=== PATIENT | male | born 2000 | race Caucasian/White ===

== ENCOUNTER 2023-01-25 20:34 | Emergency (ER) | payer BC, SELFPAY ==
[2023-01-25 20:42] VITALS: BP 152/85; PULSE 107; RESP 16; TEMP 36.8; O2SAT 98; BMI 20.5
[2023-01-25 21:42] VITALS: BP 138/81; PULSE 98; RESP 16; TEMP 36.6
--- NOTE | 2023-01-25 21:43 | HMH.EDGENADL ---
Discharge Plan Disposition Patient Disposition: Home, Self-Care Condition: Good Referrals Follow up/Referrals: Gloria Dunn MD [Primary Care Provider] - See instructions Activity Restrictions/Add. Instructions Additional Instructions/Restrictions: You will be called if your results are positive. Please follow-up with your primary care provider. Please return to the emergency department if you develop any new or worsening symptoms or become concerned for your health. Clinical Impressions Clinical Impression: Encounter for medical assessment Instructions Patient Instructions: DI for Urinary Tract Infection (UTI), DI for Urinary Tract Infection in Children Discharge ED Provider: Domingo Garay General Adult HPI General Chief complaint: Urogenital-Male Stated complaint: poss STD Time Seen by Provider: 01/25/23 20:48 Mode of Arrival: Ambulatory Source of Information: Patient Limitations: No Limitations Description of Symptoms (Recalled from ER Triage Doc. by RN): pt states he would like to be tested for chlamydia. pt states he is asymptomatic and there is no none exposure. History of Present Illness HPI narrative: 22-year-old male reportedly previously healthy presents requesting to be tested for chlamydia. He presents with girlfriend. They state that they have a friend who recently tested positive for chlamydia and they were in the same house as this friend, using the same bathroom. They are concerned that they could have gotten chlamydia. The girlfriend was asked to leave the room and a gabriella discussion was had with patient. He adamantly denies any urinary symptoms. Reports that he is monogamous with his girlfriend and does not believe that he or she has had any exposures to STDs besides the one listed above. Despite this, and he adamantly wants to be tested for chlamydia. Related Data Allergies Allergy/AdvReac Type Severity Reaction Status Date / Time No Known Allergies Allergy Verified 01/25/23 20:45 [facility] Disclaimer: The information contained in this section may have been updated after the patient was seen, as this information can be updated by other users. Social History Smoking Status: Current every day smoker alcohol intake: never current occupational status: other Travel in the last 8 weeks: None ROS Obtained: Yes All systems reviewed & no additional complaints except as documented Physical Exam General General appearance: alert and in no apparent distress Head Head exam: atraumatic and normocephalic Eye Eye exam: Present normal appearance, PERRL and EOMI ENT ENT exam: Present normal oropharynx and normal external ear exam Neck Neck exam: Present normal inspection and full ROM Chest Chest inspection: Present normal inspection and symmetric chest wall rise; Absent tenderness Respiratory Respiratory exam: Present normal lung sounds bilaterally; Absent respiratory distress Cardiovascular Cardiovascular exam: Present regular rate and normal rhythm Abdominal Exam Abdominal exam: Present soft; Absent distention, tenderness or guarding Extremities Exam Extremities exam: Present normal inspection; Absent edema or joint swelling Back Exam Back exam: Present normal inspection; Absent tenderness Neurological Exam Neurological exam: Present alert and oriented X3; Absent motor sensory deficit Psychiatric Psychiatric exam: Present normal affect and normal mood Skin Skin exam: Present warm, dry and normal color Lymphatic Lymphatic Findings: no adenopathy Medical Decision Making Medical Records Medical records reviewed: Yes I reviewed the patient's medical records. Klever Inquiry Pt receiving controlled substance: No Klever was queried for this patient: No Vital Signs: 01/25/23 20:42 01/25/23 21:42 Temperature 98.2 F 98 F Temperature Source Oral Pulse Rate 98 H Pulse Rate [Left] 107 H Respiratory Rate 16 16 Blood Pressure 138/81 Blood Pressure [Right Arm] 152/85 H
[2023-01-29 21:08] LABS: Neisseria gonorrhoeae, NAA Negative (Negative)
== END 2023-01-25 22:00 | disposition home or self-care (01) ==
PROVIDERS: Emergency Provider Emergency Medicine; PCP General Practice
DX: Z20.2 Contact with and (suspected) exposure to infections with a predominantly sexual mode of transmission (principal); F17.200 Nicotine dependence, unspecified, uncomplicated
CPT/HCPCS: 87491; 87591; 99283

== ENCOUNTER 2023-01-29 14:41 | Emergency (ER) | payer BC, SELFPAY ==
[2023-01-29] VITALS (7 sets, daily range): BP systolic 106–144; BP diastolic 56–87; PULSE 58–74; RESP 16–19; TEMP 36.6–36.8; O2SAT 98–100; BMI 21.1
--- NOTE | 2023-01-29 14:36 | ECG_ITS ---
APPROVED REPORT Exam: Resting ECG HR:65 bpm ECG Measurements Heart Rate 65 AXES DC 163 P 61 QRSd 90 QRS 92 QT 345 T 47 QTc 356 Conclusion SINUS RHYTHM BORDERLINE RIGHT AXIS DEVIATION [QRS AXIS > 90] BORDERLINE ECG UNCONFIRMED REPORT Electronically signed by : Obi Barajas MD 01/30/2023 19:44:29
--- NOTE | 2023-01-29 14:51 | XR_ITS ---
FINAL REPORT TECHNIQUE: Chest PA & Lateral CLINICAL HISTORY: chest pain, near syncope COMPARISON: None FINDINGS: 2 views of the chest were performed. The heart size is normal. The mediastinum is within normal limits. There is no acute cardiopulmonary process. There are no pleural effusions. There is no pneumothorax. The bony thorax appears intact. IMPRESSION: No acute cardiopulmonary process. Reviewed, Interpreted and Dictated by Miguel Olivarez MD Transcribed by Anamika Copeland Authenticated and [facility]
--- NOTE | 2023-01-29 14:57 | HMH.EDGENADL ---
Discharge Plan Disposition Patient Disposition: Home, Self-Care Condition: Good Referrals Follow up/Referrals: Provider,Referral, MD [Primary Care Provider] - See instructions Activity Restrictions/Add. Instructions Additional Instructions/Restrictions: Please return to the emergency department if you experience any new or worsening symptoms. Clinical Impressions Clinical Impression: Chest pain Qualifiers: Chest pain type: other chest pain Qualified Code(s): R07.89 - Other chest pain Stand Alone Forms Stand Alone Forms: Work/School Release Instructions Patient Instructions: DI for Atypical Chest Pain Discharge ED Provider: Jose Berry General Adult HPI <Pippa Winslow DO - Last Filed: 01/29/23 16:11> General Chief complaint: Chest Pain Stated complaint: chest pain Time Seen by Provider: 01/29/23 14:50 History of Present Illness HPI narrative: This patient is a 22-year-old male who do not significant past medical history presented to the emergency department for evaluation with concern for chest pain and an episode of presyncope that happened at work today. He reports that he was breathing heavily when he had numbness and tingling in his hands and feet. He states that he is experiencing chest tightness and pain and nearly passed out. He thinks that he may have actually passed out, but he is not sure. He is still experiencing chest tightness, but otherwise he is feeling better at this time. He denies any history of cardiopulmonary issues, blood clots, clotting disorders, lower extremity pain/swelling, fevers, cough, congestion, or other concerns. He does note recent stress and anxiety. Related Data Allergies Allergy/AdvReac Type Severity Reaction Status Date / Time No Known Allergies Allergy Verified 01/25/23 20:45 PFSH <Pippa Winslow DO - Last Filed: 01/29/23 16:11> [facility] Disclaimer: The information contained in this section may have been updated after the patient was seen, as this information can be updated by other users. Social History Smoking Status: Current every day smoker alcohol intake: never current occupational status: other Travel in the last 8 weeks: None <Pippa Winslow DO - Last Filed: 01/29/23 16:11> ROS Obtained: Yes All systems reviewed & no additional complaints except as documented Physical Exam <Pippa Winslow DO - Last Filed: 01/29/23 16:11> General General appearance: alert and in no apparent distress Head Head exam: atraumatic and normocephalic Eye Eye exam: Present normal appearance, PERRL and EOMI ENT ENT exam: Present normal exam, normal oropharynx, mucous membranes moist and normal external ear exam Neck Neck exam: Present normal inspection, full ROM and trachea midline; Absent tenderness Chest Chest inspection: Present normal inspection and symmetric chest wall rise; Absent tenderness Respiratory Respiratory exam: Present normal lung sounds bilaterally; Absent respiratory distress, wheezes, stridor or accessory muscle use Cardiovascular Cardiovascular exam: Present regular rate and normal rhythm Abdominal Exam Abdominal exam: Present soft; Absent distention, tenderness or guarding Extremities Exam Extremities exam: Present normal inspection, full ROM and normal capillary refill; Absent tenderness or edema Back Exam Back exam: Present normal inspection and full ROM; Absent tenderness Neurological Exam Neurological exam: Present alert, oriented X3, CN II-XII intact and normal gait; Absent motor sensory deficit Psychiatric Psychiatric exam: Present normal affect and normal mood Skin Skin exam: Present warm and dry Medical Decision Making <Pippa Winslow DO - Last Filed: 01/29/23 16:11> Medical Records Medical records reviewed: Yes I reviewed the patient's medical records. Klever Inquiry Pt receiving controlled substance: No Vital Signs: 01/29/23 14:56 01/29/23 15:31 01/29/23 16:00 Temper
[2023-01-29 15:06] LABS: Basophils % 0.3 % (0.1-2.0); Eosinophils # 0.2 K/mm3 (0.0-0.4); Eosinophils % 2.3 % (0.1-12.0); Hematocrit 43.3 % (42.0-52.0); Hemoglobin 15.6 g/dL (14.1-18.0); Lymphocytes # 1.9 K/mm3 (0.7-4.5); Lymphocytes % 18.8 % (10-50); Mean Corpuscular HGB Conc 35.9 g/dL (31.8-35.4); Mean Corpuscular Hemoglobin 30.6 pg (27.0-31.2); Mean Corpuscular Volume 85.3 fl (80-94); Monocytes # 0.6 K/mm3 (0.1-1.0); Monocytes % 6.3 % (1.7-9.3); Neutrophils # 7.4 K/mm3 (1.8-7.8); Neutrophils % 72.4 % (37.0-80.0); Platelet Count 220 K/mm3 (142-424); Red Blood Count 5.08 M/mm3 (4.60-6.20); Red Cell Distribution Width 12.1 % (11.5-17.5); White Blood Count 10.3 K/mm3 (4.5-13.0)
[2023-01-29 15:07] LABS: Chloride 103 mmol/L (98-107); Potassium 4.1 mmoL/L (3.5-5.1); Sodium 141 mmol/L (136-145)
[2023-01-29 15:09] LABS: Alanine Aminotransferase 22 U/L (12-78); Aspartate Amino Transferase 29 U/L (17-59); Blood Urea Nitrogen 16 mg/dl (9-20); Creatinine Clearance Estimated 111 mL/min (50-200); Estimated Glomerular Filt Rate 95 ml/min (>60); GFR (African American) 115 ML/MIN (>60)
[2023-01-29 15:10] LABS: Albumin/Globulin Ratio 1.6 (1.1-1.8); Alkaline Phosphatase 98 U/L (38-126); Anion Gap 15.1 mEq/L (5-15); Bilirubin,Total 1.2 mg/dl (0.2-1.3); Calcium 10.2 mg/dl (8.4-10.2); Carbon Dioxide 27 mmol/L (22.0-30.0); Globulin 3.1 g/dL (1.3-3.2); Glucose 99 mg/dl (74-100); Total Protein,Serum 8.1 g/dl (6.3-8.2)
[2023-01-29 15:16] LABS: C-Reactive Protein 0.7 mg/L (0-4)
[2023-01-29 15:24] LABS: Troponin I < 0.01 ng/ml (0.00-0.034)
[2023-01-29 15:30] LABS: Erythrocyte Sedimentation Rate 2 mm/hr (0-15)
[2023-01-29 15:41] LABS: Thyroid Stimulating Hormone 1.32 uIU/mL (0.465-4.68)
--- NOTE | 2023-01-29 16:40 | PC.NURSE ---
REQUESTED A 2 HOUR TROP LAB AWARE
[2023-01-29 17:52] LABS: Troponin I < 0.01 ng/ml (0.00-0.034)
--- NOTE | 2023-01-29 17:59 | PC.NURSE ---
rounded on pt at this time, pt states no needs, reports no pain at this time, call button in reach.
== END 2023-01-29 18:10 | disposition home or self-care (01) ==
PROVIDERS: Emergency Medicine; Emergency Provider Emergency Medicine
DX: R07.89 Other chest pain (principal); R20.2 Paresthesia of skin; R55 Syncope and collapse; F17.200 Nicotine dependence, unspecified, uncomplicated
CPT/HCPCS: 36415; 71046; 80053; 84436; 84443; 84484; 85025; 85651; 86140; 93005; 99285